=== PATIENT | female | born 1965 ===

== ENCOUNTER → 2023-09-20 | Outpatient (CLI) | payer OTHER ==
[2023-10-04 13:08] LABS: HPV GENOTYPE 16 Not Detected; HPV GENOTYPE 18 Not Detected; HPV HIGH RISK Not Detected; HPV SOURCE Not Provided
== END ==
LOC: LAB 11:01 → LAB SHORT 11:01
PROVIDERS: Family Medicine
DX: Z12.4 Encounter for screening for malignant neoplasm of cervix (principal)
CPT/HCPCS: 87624; G0123